=== PATIENT | male | born 1990 | race Caucasian/White ===

== ENCOUNTER 2018-08-25 16:01 | Emergency (ER) | payer SELFPAY ==
[~2018-08-25] VITALS: Ht 175.3 cm; Wt 72.6 kg
[2018-08-25 16:27] VITALS: BP 145/88
[2018-08-25] MEDS ORDERED: cefTRIAXone IM 1 GM VIAL IM ONE (17:00)
[2018-08-25] MEDS ORDERED: ACETAMINOPHEN 500 MG TABLET PO ONE (17:00)
[2018-08-25] MEDS ORDERED: CEPH-264 PO (17:01)
--- NOTE | 2018-08-25 17:02 | PHYS DOC ---
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 Adult General Chief Complaint Chief Complaint: SORE THROAT HPI HPI Patient is a 28 year old male who presents with a sore throat and fever that has been worsening over the past 4 days. The patient states that it is painful to swallow. He has been taking ibuprofen for his fever with moderate relief. Review of Systems Review of Systems Constitutional: Denies fever or chills [] Eyes: Denies change in visual acuity, redness, or eye pain [] HENT: See history of present illness Respiratory: Denies cough or shortness of breath [] Cardiovascular: No additional information not addressed in HPI [] GI: Denies abdominal pain, nausea, vomiting, bloody stools or diarrhea [] : Denies dysuria or hematuria [] Musculoskeletal: Denies back pain or joint pain [] Integument: Patient does have an abscess on his buttock that is healing Neurologic: Denies headache, focal weakness or sensory changes [] Endocrine: Denies polyuria or polydipsia [] All other systems were reviewed and found to be within normal limits, except as documented in this note. Current Medications Current Medications Current Medications Medications (Trade) Dose Ordered Sig/Dax Start Time Stop Time Status Last Admin Dose Admin Acetaminophen (Tylenol) 1,000 mg 1X ONCE 08/25/18 17:00 08/25/18 17:01 DC 08/25/18 17:00 1,000 MG Ceftriaxone Sodium (Rocephin Im) 1 gm 1X ONCE 08/25/18 17:00 08/25/18 17:01 DC 08/25/18 16:58 1 GM Allergies Allergies Allergies Coded Allergies Type Severity Reaction Last Updated Verified No Known Drug Allergies 08/25/18 No Physical Exam Physical Exam Constitutional: Well developed, well nourished, no acute distress, non-toxic appearance. [] HENT: Normocephalic, atraumatic, bilateral external ears normal, pharyngeal erythema with bilateral exudates, nose normal. [] Eyes: PERRLA, EOMI, conjunctiva normal, no discharge. [] Neck: Normal range of motion, positive anterior cervical adenopathy, supple, no stridor. [] Cardiovascular:Heart rate regular rhythm, no murmur [] Lungs & Thorax: Bilateral breath sounds clear to auscultation [] Abdomen: Bowel sounds normal, soft, no tenderness, no masses, no pulsatile masses. [] Skin: Warm, dry, no erythema, no rash. [] Neurologic: Alert and oriented X 3, normal motor function, normal sensory function, no focal deficits noted. [] Psychologic: Affect normal, judgement normal, mood normal. [] Current Patient Data Vital Signs Vital Signs Date Time Temp Pulse Resp B/P (MAP) Pulse Ox O2 Delivery O2 Flow Rate FiO2 08/25/18 16:27 103.1 129 18 145/88 (107) 99 Room Air 103.1 EKG EKG [] Radiology/Procedures Radiology/Procedures [] Course & Med Decision Making Course & Med Decision Making Pertinent Labs and Imaging studies reviewed. (See chart for details) []The patient was given a gram of Rocephin in the emergency department. Dragon Disclaimer Dragon Disclaimer This electronic medical record was generated, in whole or in part, using a voice recognition dictation system. Departure Departure Impression: Primary Impression: Tonsillitis Additional Impression: Fever Disposition: 01 HOME, SELF-CARE Condition: STABLE Referrals: UNKNOWN PCP NAME (PCP) Patient Instructions: Tonsillitis Additional Instructions: Take the medications as directed. You may use salt water gargles for comfort. Continue to use ibuprofen or Tylenol for pain or fever. Follow-up with your primary care physician in 4 days if not improving or return to the emergency department if worsening. Scripts Cephalexin (KEFLEX) 500 Mg Capsule 1 CAP PO TID for tonsillitis, #30 CAP Prov: DAGOBERTO BURRELL APRN 08/25/18 Problem Qualifiers DAGOBERTO BURRELL APRN Aug 25, 2018 17:02
== END 2018-08-25 17:40 | disposition home or self-care (01) ==
LOC: ER 16:01
DX: J03.90 Acute tonsillitis, unspecified (principal)
CPT/HCPCS: 96372; 99283; J0696